=== PATIENT | male | born 1940 | race Caucasian/White ===

== ENCOUNTER 2020-02-23 15:47 | Emergency (ER) | payer MEDICARE, SELFPAY ==
--- NOTE | ~2020-02-23 | CT_ITS ---
EXAMINATION: CT abdomen pelvis w con DATE: 02/23/2020 17:01 INDICATION: Abdominal pain TECHNIQUE: Computed tomography (CT) of the abdomen and pelvis was performed with 100 cc Omnipaque 350 intravenous contrast. Automated exposure control and iterative reconstruction technique were employe d. Exam dose: 675.38 mGy-cm total exam DLP. COMPARISON: None. FINDINGS: There is minimal dependent atelectasis at the lower lobes. Normal heart size. Moderately large hiatal hernia. There are multiple scattered left and right hepatic and caudate process cysts, the largest measuring up to approximately 1.6 cm maximal dimension. No intrahepatic or extrahepatic bile duct or pancreatic duct dilatation. The gallbladder is unremarkable. No pancreatic mass lesion or calcification. Normal splenic size. Normal morphology of the adrenal glands. Approximately 4.1 cm upper pole left renal cyst. Approximately 1 cm right renal cyst. Occasional additional very small bilateral renal cysts are sugge sted. 3 mm upper pole nonobstructing right renal calculus. Approximately 2.7 mm lower pole nonobstructing r ight renal calculus. There are 2 approximately 2.5 mm or smaller nonobstructing left renal calculi. No ureteral calculus or hydroureteronephrosis. Normal caliber of the abdominal aorta. No intraperitoneal or retroperitoneal or pelvic mass lesion or adenopathy or ascites. There is prominent prostate enlargement and calcification; the prostate gland impresses the base of t he urinary bladder. There is moderate diffuse thickening of the urinary bladder wall. There are numerous diverticula of the sigmoid and to a lesser extent descending colon; no CT evidence of diverticulitis. Normal appendix. No bowel obstruction, bowel wall thickening, pneumatosis or intraperitoneal free air. Mild degenerative changes of the thoracic and lumbar spine. No suspicious osteolytic or osteoblastic lesions are noted. IMPRESSION: Moderately large hiatal hernia Multiple hepatic cysts Bilateral renal cysts Bilateral nonobstructive nephrolithiasis; no ureteral calculus or hydroureteronephrosis Moderately prominent prostate enlargement, prostate calcifications Diverticulosis of the left colon; no CT evidence of diverticulitis Reviewed, dictated and finalized at [facility] Reviewed, dictated and finalized at [facility] SPLITTER IMPRESSION: Moderately large hiatal hernia Multiple hepatic cysts Bilateral renal cysts Bilateral nonobstructive nephrolithiasis; no ureteral calculus or hydroureteron ephrosis Moderately prominent prostate enlargement, prostate calcifications Diverticulosis of the left colon; no CT evidence of diverticulitis
[2020-02-23 15:51] VITALS: BP 141/81; PULSE 85; RESP 18; TEMP 36.7; O2SAT 99
[2020-02-23] MEDS: SODIUM CHLORIDE 0.9% IV 1,000 ML 999 ML IV CONT (16:26)
[2020-02-23 16:28] LABS: Basophils Percent Auto 0.2 % (0.2-1.2); Eosinophils Absolute Auto 0.1 K/mm3 (0-0.3); Hematocrit 36.7 % (42.0-52.0); Hemoglobin 12.8 g/dL (14.0-18.0); Immature Granulocyte Absolute 0.01 K/mm3 (0.00-0.031); Immature Granulocyte Percent A 0.2 % (0-0.5); Lymphocytes Absolute Auto 0.84 K/mm3 (0.9-3.2); Lymphocytes Percent Auto 14.4 % (18.3-44.2); Mean Corpuscular HGB Conc 34.9 g/dl (32-36); Mean Corpuscular Hemoglobin 31.7 pg (26-34); Mean Corpuscular Volume 90.8 fl (80-100); Mean Platelet Volume 9.9 fl (7.4-10.4); Monocytes Absolute Auto 0.7 K/mm3 (0.1-0.6); Monocytes Percent Auto 11.5 % (2.6-8.5); Neutrophils Absolute Auto 4.2 K/mm3 (1.3-6.7); Neutrophils Percent Auto 72.7 % (45.5-73.1); Platelet Count Result 149 k/mm3 (150-375); Red Blood Count 4.04 M/mm3 (4.6-6.20); Red Cell Distribution Width 11.9 % (11.5-14.5); White Blood Count 5.8 K/mm3 (4.5-10.0)
[2020-02-23 16:33] LABS: Add Urine Microscopic? YES; Appearance Urine Clear (Clear); Bacteria Urine Trace /hpf; Bilirubin Urine Negative (Negative); Blood Urine Negative (Negative); Color Urine Yellow (Yellow); Glucose Urine UA Negative (Negative); Ketones Urine Negative (Negative); Leukocyte Esterase Ur Negative LEU/UL (Negative); Mucus Urine Rare /lpf; Nitrate Urine Negative (Negative); Protein Urine 1+ mg/dL (Negative); RBC Urine 0-2 /hpf (0-2); Specific Grav Ur 1.023 (1.001-1.035); WBC Urine 0-3 /hpf
[2020-02-23 16:40] LABS: Alanine Aminotransferase 20 U/L (4-50); Albumin Level 4.1 g/dL (3.5-5.1); Alkaline Phosphatase 97 U/L (38-126); Anion Gap 8 mmol/L (8-16); Aspartate Amino Transferase 41 U/L (17-59); Bilirubin,Total 0.7 mg/dL (0.2-1.3); Blood Urea Nitrogen 20 mg/dL (9-20); Carbon Dioxide 29 mmol/L (22-30); Chloride 102 mmol/L (98-107); Estimated CRCL calculation 61 ml/min; Estimated Glomerular Filt Rate > 60; Glucose 127 mg/dL (75-110); Lipase 278 U/L (23-300); Potassium 3.9 mmol/L (3.4-5.0); Sodium 139 mmol/L (137-145)
--- NOTE | 2020-02-23 17:12 | ED.ABDPAIN ---
HPI - Abdominal Pain General Chief Complaint: Abdominal Pain Stated Complaint: abd pain Time Seen by Provider: 02/23/20 15:59 Source: patient Mode of arrival: ambulatory Limitations: no limitations History of Present Illness HPI narrative: 79 years old white male presents with mid abdominal pain started 1-1/2-hour prior to arrival to the emergency room, Patient denies any fever, chills, nausea, vomiting, diarrhea, constipation, urinary symptoms, radiation of pain, chest pain or shortness of breath. Patient also denies any exposure to anybody known having COVID-19. Pain subsided on arrival to the emergency room. Pain was 10 out of 10, on arrival to the emergency room 1 out of 10 Related Data Allergies Allergy/AdvReac Type Severity Reaction Status Date / Time codeine AdvReac Intermediate Nausea Verified 02/23/20 16:02 Review of Systems Review of Systems: Narrative: CONSTITUTIONAL: Denies fever, chills, or sweats. EYES: Denies visual changes, redness, or discharge. ENT: Denies rhinorrhea, congestion, sore throat, or otalgia. CARDIOVASCULAR: Denies chest pain, palpitations, or edema. RESPIRATORY: Denies cough or dyspnea. GASTROINTESTINAL: Denies abdominal pain, nausea, vomiting, or diarrhea. GENITOURINARY: Denies dysuria or hematuria. SKIN: Denies rash or itching. MUSCULOSKELETAL: Denies back pain, joint pain, or myalgia. NEUROLOGIC: Denies headache, numbness, or weakness. PSYCHIATRIC: Denies anxiety or depression. Exam Narrative: Exam Narrative: General appearance: Well-developed, well-nourished Skin: Normal color Head: Normocephalic, nontraumatic Eyes: Clear conjunctiva ENT: Oropharynx normal, ears normal, nose normal Neck: Supple, nontender Chest and respiratory: Airway patent, no respiratory distress, no accessory muscle use Heart: Regular rate/rhythm Abdomen: Soft, nontender, no organomegaly, quiet bowel sounds Vascular: Normal peripheral pulses, normal capillary refill. Musculoskeletal: Normal range of motion, nontender back Neurologic: Alert and oriented ?3, [employer] is normal as tested, no gross motor deficit Course Course Emergency Course: Stable Vital Signs Vital signs: Vital Signs Temperature 36.7 C 02/23/20 15:51 Pulse Rate 85 02/23/20 15:51 Respiratory Rate 18 02/23/20 15:51 Blood Pressure 141/81 H 02/23/20 15:51 Pulse Oximetry 99 02/23/20 15:51 Temperature 36.7 C 02/23/20 15:51 Pulse Rate 85 02/23/20 15:51 Respiratory Rate 18 02/23/20 15:51 Blood Pressure 141/81 H 02/23/20 15:51 Pulse Oximetry 99 02/23/20 15:51 MDM - Abdominal Pain MDM Narrative Medical decision making narrative: Patient presents with abdominal pain subsided on arrival to the emergency room. My concern is the differential diagnosis below. Labs, CT abdomen and pelvis with IV contrast, IV fluids. Patient declined to take any pain medication at this time. Differential Diagnosis Differential diagnosis: Likely abdominal pain, acute appendicitis, constipation, diverticulitis and small bowel obstruction Lab Data Result diagrams: 02/23/20 16:20 02/23/20 16:20 Labs: Lab Results 02/23/20 02/23/20 02/23/20 Range/Units 16:20 16:20 16:20 WBC 5.8 (4.5-10.0) K/mm3 RBC 4.04 L (4.6-6.20) M/mm3 Hgb 12.8 L (14.0-18.0) g/dL Hct 36.7 L (42.0-52.0) % MCV 90.8 (80-100) fl MCH 31.7 (26-34) pg MCHC 34.9 (32-36) g/dl RDW 11.9 (11.5-14.5) % Plt Count 149 L (150-375) k/mm3 MPV 9.9 (7.4-10.4) fl Immature Gran % (Auto) 0.2 (0-0.5) % Neut % (Auto) 72.7 (45.5-73.1) % Lymph % (Auto) 14.4 L (18.3-44.2) % Daniels % (Auto) 11.5 H (2.6-8.5) % Eos % (Auto) 1.
[2020-02-23 18:40] VITALS: BP 160/68; PULSE 74; RESP 18; O2SAT 98
[2020-02-23] MEDS: BELLADONNA ALK/PHENOB ELIX 10 ML, MAG HYDROX/ALUMINUM HYD/SIMETH 30 ML, LIDOCAINE HCL 2... PO (18:40)
== END 2020-02-23 18:53 | disposition home or self-care (01) ==
PROVIDERS: Emergency Provider Emergency Medicine
DX: K44.9 Diaphragmatic hernia without obstruction or gangrene (principal); N28.1 Cyst of kidney, acquired; N20.0 Calculus of kidney; N40.0 Benign prostatic hyperplasia without lower urinary tract symptoms; K57.90 Diverticulosis of intestine, part unspecified, without perforation or abscess without bleeding
CPT/HCPCS: 36415; 74177; 80053; 81001; 83690; 85025; 96360; 96361; 99284; A9270; J7030; Q9967